=== PATIENT | female | born 1935 | race African-American/Black ===

== ENCOUNTER 2019-02-11 14:42 | Inpatient (IN) ==
[2019-02-11] MEDS ORDERED: ceFAZolin 1,000 MG in SYRINGE 1 EACH IV ONE (15:44)
[2019-02-11] MEDS ORDERED: DEXTROSE 50% 25 GM/50 ML SYRINGE IV ONE (15:55)
[2019-02-11] MEDS ORDERED: DEXTROSE 50% 25 GM/50 ML VIAL IV STA (15:55)
[2019-02-11 15:57] LABS: Basophils % 0.1 % (0.0-0.8); Eosinophils % 0.1 % (0.00-10.9); Hematocrit 30.8 VOL% (35.7-47.0); Hemoglobin 9.2 GM/DL (12.0-16.0); Immature Granulocytes % 0.5 %; Immature Granulocytes Absolute 0.04 #; Lymphocytes # 0.6 10*3/uL (1.4-4.0); Lymphocytes % 7.2 % (21.3-54.2); Mean Corpuscular HGB Conc 29.9 GM/DL (32-36); Mean Corpuscular Volume 91.7 FL (87-102); Mean Platelet Volume 10.5 FL (9.6-12.0); Monocytes % 5.1 % (1.7-12.7); Platelet Count 190 T/CUMM (130-400); Red Blood Count 3.36 MC/CUMM (3.8-5.5); Red Cell Distribution Width 19.9 % (9.3-17.3); White Blood Count 7.6 T/CUMM (4-12)
[2019-02-11 16:07] LABS: INR 1.1; PT Patient Result 12.3 SECS (9.6-12.2); Partial Thromboplastin Time 28.5 SECS (20.8-36.0)
[2019-02-11 16:18] LABS: Albumin 1.6 G/DL (3.4-5.0); Bilirubin,Total 0.5 MG/DL (0.2-1.0); Calcium 10.5 MG/DL (8.5-10.1); Total Protein 7.4 G/DL (6.4-8.3)
[2019-02-11] MEDS ORDERED: ONDANSETRON 4 MG/2 ML VIAL IV PRN (16:23)
[2019-02-11] MEDS ORDERED: GLUCAGON 1 MG VIAL IM PRN (16:23)
[2019-02-11] MEDS: INSULIN LISPRO 100 UNIT/ML SUBCUT SCH ×2 (16:30→21:05)
[2019-02-11] MEDS: DEXTROSE 10% 250 ML BAG IV PRN (21:05)
[2019-02-12] MEDS: DEXTROSE 10% 250 ML BAG IV PRN ×3 (00:54→09:55)
[2019-02-12 05:56] LABS: Basophils % 0.2 % (0.0-0.8); Eosinophils # 0.1 10*3/uL (0.0-0.87); Eosinophils % 0.9 % (0.00-10.9); Hematocrit 24.1 VOL% (35.7-47.0); Hemoglobin 7.4 GM/DL (12.0-16.0); Immature Granulocytes % 0.3 %; Immature Granulocytes Absolute 0.02 #; Lymphocytes # 0.8 10*3/uL (1.4-4.0); Lymphocytes % 14.3 % (21.3-54.2); Mean Corpuscular HGB Conc 30.7 GM/DL (32-36); Mean Corpuscular Volume 90.6 FL (87-102); Mean Platelet Volume 10.6 FL (9.6-12.0); Monocytes % 6.3 % (1.7-12.7); Platelet Count 175 T/CUMM (130-400); Red Blood Count 2.66 MC/CUMM (3.8-5.5); Red Cell Distribution Width 19.9 % (9.3-17.3); White Blood Count 5.7 T/CUMM (4-12)
[2019-02-12 06:43] LABS: Alanine Aminotransferase 17 U/L (13-56); Albumin 1.3 G/DL (3.4-5.0); Alkaline Phosphatase 130 U/L (45-117); Aspartate Amino Transferase 21 U/L (0-37); Bilirubin,Total < 0.39 MG/DL (0.2-1.0); Blood Urea Nitrogen 58 MG/DL (7-18); Calcium 9.5 MG/DL (8.5-10.1); Estimated Glom Filtration Rate 6 ML/MIN; Osmolality,Calculated 282.1 MOS/KG (273-304); Total Protein 5.9 G/DL (6.4-8.3)
[2019-02-12 06:53] LABS: Glucose 47 MG/DL (74-106)
[2019-02-12] MEDS: INSULIN LISPRO 100 UNIT/ML SUBCUT SCH ×4 (07:19→21:18)
[2019-02-12] MEDS ORDERED: ceFAZolin 1,000 MG in SYRINGE 1 EACH IV ONE (08:30)
[2019-02-12] MEDS: PANTOPRAZOLE 40 MG TABLET PO SCH (09:00)
[2019-02-12] MEDS ORDERED: BUPIVACAINE MPF 0.25% 30 ML VIAL ONE (10:07)
[2019-02-12] MEDS ORDERED: LIDOCAINE 1%/EPI INJ 20 ML VIAL ONE (10:07)
[2019-02-12] MEDS ORDERED: HEPARIN 5,000 UNIT/1 ML VIAL ONE (10:07)
[2019-02-12] MEDS ORDERED: SODIUM CHLORIDE 0.9% 250 ML IV SCH (11:00)
[2019-02-12] MEDS ORDERED: LIDOCAINE 2% 5 ML VIAL ONE (11:41)
[2019-02-12] MEDS ORDERED: PROPOFOL 200 MG/20 ML VIAL IV ONE (11:41)
[2019-02-12] MEDS ORDERED: GLUCAGON 1 MG VIAL IM PRN (13:01)
[2019-02-12] MEDS ORDERED: HEPARIN 10,000 UNIT/10 ML VIAL IV SCH (17:30)
[2019-02-12] MEDS ORDERED: DEXTROSE 10% 250 ML IV ONE ×2 (21:12→22:16)
[2019-02-12] MEDS: DEXTROSE 10% 25 GM/250 ML BAG IV PRN ×2 (21:18→22:19)
[2019-02-13] MEDS ORDERED: DEXTROSE 10% 250 ML IV ONE (03:57)
[2019-02-13] MEDS: DEXTROSE 10% 25 GM/250 ML BAG IV PRN ×2 (03:58→08:07)
[2019-02-13 06:05] LABS: Calcium 8.6 MG/DL (8.5-10.1); Osmolality,Calculated 274.1 MOS/KG (273-304)
[2019-02-13] MEDS: INSULIN LISPRO 100 UNIT/ML SUBCUT SCH ×4 (07:14→21:54)
[2019-02-13 07:27] LABS: Basophils % 0.3 % (0.0-0.8); Eosinophils % 0.4 % (0.00-10.9); Hematocrit 23.3 VOL% (35.7-47.0); Hemoglobin 7.2 GM/DL (12.0-16.0); Immature Granulocytes % 0.3 %; Immature Granulocytes Absolute 0.02 #; Lymphocytes # 1.1 10*3/uL (1.4-4.0); Mean Corpuscular HGB Conc 30.9 GM/DL (32-36); Mean Platelet Volume 10.4 FL (9.6-12.0); Monocytes % 6.3 % (1.7-12.7); Neutrophils % 78.7 % (38.7-73.9); Platelet Count 128 T/CUMM (130-400); Red Blood Count 2.59 MC/CUMM (3.8-5.5); Red Cell Distribution Width 19.7 % (9.3-17.3); White Blood Count 7.5 T/CUMM (4-12)
[2019-02-13] MEDS: PANTOPRAZOLE 40 MG TABLET PO SCH (09:21)
[2019-02-13] MEDS ORDERED: SODIUM CHLORIDE 0.9% 1,000 ML IV PRN (09:21)
[2019-02-13] MEDS ORDERED: ACETAMINOPHEN 500 MG TABLET PO PRN (09:24)
[2019-02-13] MEDS ORDERED: POLYETHYLENE GLYCOL POWDER 17 GM PACK PO PRN (09:24)
[2019-02-13] MEDS ORDERED: SKIN HEALING OINT (AQUAPHOR) 50 GM TUBE TOP PRN (15:10)
[2019-02-13] MEDS: CYPROHEPTADINE 4 MG TABLET PO SCH ×2 (15:38→21:58)
[2019-02-13] MEDS: SEVELAMER CARBONATE 800 MG TABLET PO SCH ×2 (15:38→22:17)
[2019-02-13] MEDS ORDERED: DEXTROSE 10% 25 GM/250 ML BAG IV ONE (16:45)
[2019-02-13] MEDS ORDERED: MIRTAZAPINE 15 MG TABLET PO SCH (21:00)
[2019-02-13] MEDS ORDERED: ARIPiprazole 5 MG TABLET PO SCH (21:00)
[2019-02-14] MEDS: DEXTROSE 10% 25 GM/250 ML BAG IV PRN (03:17)
[2019-02-14] MEDS ORDERED: DEXTROSE 10% 250 ML BAG IV PRN (03:30)
[2019-02-14 04:56] LABS: Basophils % 0.3 % (0.0-0.8); Eosinophils % 0.5 % (0.00-10.9); Hematocrit 24.5 VOL% (35.7-47.0); Hemoglobin 7.5 GM/DL (12.0-16.0); Immature Granulocytes % 0.5 %; Immature Granulocytes Absolute 0.04 #; Lymphocytes # 1.4 10*3/uL (1.4-4.0); Lymphocytes % 17.3 % (21.3-54.2); Mean Corpuscular HGB Conc 30.6 GM/DL (32-36); Mean Corpuscular Volume 89.4 FL (87-102); Mean Platelet Volume 9.5 FL (9.6-12.0); Monocytes % 8.5 % (1.7-12.7); Neutrophils % 72.9 % (38.7-73.9); Platelet Count 109 T/CUMM (130-400); Red Blood Count 2.74 MC/CUMM (3.8-5.5); Red Cell Distribution Width 19.3 % (9.3-17.3); White Blood Count 7.8 T/CUMM (4-12)
[2019-02-14 05:22] LABS: Calcium 9.1 MG/DL (8.5-10.1); Osmolality,Calculated 269.4 MOS/KG (273-304)
[2019-02-14] MEDS: INSULIN LISPRO 100 UNIT/ML SUBCUT SCH ×3 (07:21→16:03)
[2019-02-14] MEDS ORDERED: EPOETIN ALFA 2,000 UNIT/1 ML VIAL IV PRN (08:43)
[2019-02-14] MEDS ORDERED: LACTULOSE 20 GM/30 ML UDCUP PO SCH (09:00)
[2019-02-14] MEDS ORDERED: FAMOTIDINE 20 MG TABLET PO SCH (09:00)
[2019-02-14] MEDS ORDERED: LISINOPRIL 2.5 MG TABLET PO SCH (09:00)
[2019-02-14] MEDS: CYPROHEPTADINE 4 MG TABLET PO SCH ×2 (11:15→15:47)
[2019-02-14] MEDS: SEVELAMER CARBONATE 800 MG TABLET PO SCH ×3 (11:16→15:55)
[2019-02-14 14:09] LABS: Hematocrit 30.3 VOL% (35.7-47.0)
[2019-02-14 14:16] LABS: Hemoglobin 9.7 GM/DL (12.0-16.0)
[2019-02-14 16:27] VITALS: BP 106/41
== END 2019-02-14 17:04 | DRG 314 ==
LOC: EDUNIT# → EDBD → N.EDINP 14:42 → N.ED 14:42 → N.3E 16:54
PROVIDERS: ADMIT Internal Medicine; ATTEND Internal Medicine

== ENCOUNTER 2019-03-18 20:49 | Inpatient (IN) ==
[2019-03-18] MEDS ORDERED: DEXTROSE 50% 25 GM/50 ML SYRINGE IV ONE (20:55)
[2019-03-18 21:51] LABS: Alanine Aminotransferase 17 U/L (13-56); Albumin 1.3 G/DL (3.4-5.0); Alkaline Phosphatase 141 U/L (45-117); Aspartate Amino Transferase 48 U/L (0-37); Bilirubin,Total < 0.39 MG/DL (0.2-1.0); Blood Urea Nitrogen 7 MG/DL (7-18); Calcium 7.4 MG/DL (8.5-10.1); Estimated Glom Filtration Rate 30 ML/MIN; Glucose 151 MG/DL (74-106); Total Protein 6.4 G/DL (6.4-8.3)
[2019-03-19] LABS: Basophils % 0.1 % (0.0-0.8); Eosinophils % 0.1 % (0.00-10.9); Hematocrit 35.6 VOL% (35.7-47.0); Hemoglobin 11.2 GM/DL (12.0-16.0); Immature Granulocytes % 0.4 %; Immature Granulocytes Absolute 0.03 #; Lymphocytes # 0.7 10*3/uL (1.4-4.0); Lymphocytes % 8.7 % (21.3-54.2); Mean Corpuscular HGB Conc 31.5 GM/DL (32-36); Mean Corpuscular Volume 86.2 FL (87-102); Monocytes % 3.4 % (1.7-12.7); NRBC # 0.02 10*3/uL; Neutrophils % 87.3 % (38.7-73.9); Platelet Count 61 T/CUMM (130-400); Red Blood Count 4.13 MC/CUMM (3.8-5.5); Red Cell Distribution Width 21.2 % (9.3-17.3); White Blood Count 8.1 T/CUMM (4-12)
[2019-03-19] MEDS ORDERED: PIPERACILLIN/TAZOBACTAM 2,250 MG in SODIUM CHLORIDE 0.9% 100 ML IV STA (00:05)
[2019-03-19 00:07] LABS: INR 1.4
[2019-03-19] MEDS ORDERED: PIPERACILLIN/TAZOBACTAM 3,375 MG in SODIUM CHLORIDE 0.9% 100 ML IV STA (00:07)
[2019-03-19 00:25] LABS: Anisocytosis 1+; Lymphocytes 6 % (20-55); Segmented Neutrophils 91 % (50-85); Total Cells Counted 100
[2019-03-19 00:26] LABS: Acanthocytes Few; Ovalocytes 1+; Platelet Estimate Decreased; Target Cells Few
[2019-03-19] MEDS ORDERED: BISACODYL 5 MG TABLET PO PRN (00:53)
[2019-03-19] MEDS ORDERED: diphenhydrAMINE CAP 25 MG CAPSULE PO PRN (00:53)
[2019-03-19] MEDS ORDERED: MORPHINE 4 MG/1 ML VIAL IV PRN (00:53)
[2019-03-19] MEDS ORDERED: ACETAMINOPHEN 325 MG TABLET PO PRN (00:53)
[2019-03-19] MEDS ORDERED: ONDANSETRON 4 MG/2 ML VIAL IV PRN (00:53)
[2019-03-19] MEDS ORDERED: DEXTROSE 50% 25 GM/50 ML VIAL IV PRN (00:59)
[2019-03-19] MEDS ORDERED: VANCOMYCIN INJ 1,000 MG in SODIUM CHLORIDE 0.9% 250 ML IV PRN (01:07)
[2019-03-19] MEDS ORDERED: VANCOMYCIN INJ 1,750 MG in SODIUM CHLORIDE 0.9% 500 ML IV ONE (03:00)
[2019-03-19] MEDS ORDERED: INFLUENZA VIRUS VACCINE 0.5 ML SYRINGE IM ONE (03:51)
[2019-03-19] MEDS: GLUCAGON 1 MG VIAL IM PRN (04:20)
[2019-03-19] MEDS ORDERED: DEXTROSE 10% 250 ML IV ONE ×2 (05:46→05:49)
[2019-03-19] MEDS: DEXTROSE 10% 500 ML IV SCH ×2 (06:16→06:56)
[2019-03-19 06:56] LABS: Calcium 7.9 MG/DL (8.5-10.1); Osmolality,Calculated 270.7 MOS/KG (273-304)
[2019-03-19] MEDS: PIPERACILLIN/TAZOBACTAM 3,375 MG in SODIUM CHLORIDE 0.9% 100 ML IV SCH ×2 (10:10→18:14)
[2019-03-20] MEDS ORDERED: DEXTROSE 10% 500 ML IV SCH ×2 (01:00)
[2019-03-20] MEDS: DEXTROSE 5% NACL 0.45% 1,000 ML IV SCH ×2 (01:43→17:10)
[2019-03-20] MEDS: PIPERACILLIN/TAZOBACTAM 3,375 MG in SODIUM CHLORIDE 0.9% 100 ML IV SCH ×2 (02:05→22:56)
[2019-03-20 05:38] LABS: Calcium 7.7 MG/DL (8.5-10.1)
[2019-03-20] MEDS ORDERED: LIDOCAINE 1% 20 ML VIAL ONE (06:34)
[2019-03-20] MEDS ORDERED: PROPOFOL 200 MG/20 ML VIAL IV ONE (07:57)
[2019-03-20] MEDS ORDERED: LIDOCAINE 2% 5 ML VIAL ONE (07:57)
[2019-03-20] MEDS ORDERED: PHENYLEPHRINE 1 MG/10 ML SYRINGE IV ONE (07:58)
[2019-03-20] MEDS ORDERED: KETAMINE 500 MG/10 ML VIAL ONE (07:58)
[2019-03-20] MEDS ORDERED: SODIUM CHLORIDE 0.9% 500 ML IV ONE (10:10)
[2019-03-20] MEDS: GLUCAGON 1 MG VIAL IM PRN ×3 (11:15→20:08)
[2019-03-20] MEDS: SEVELAMER CARBONATE 800 MG TABLET PO SCH ×3 (14:33→23:04)
[2019-03-20] MEDS ORDERED: HEPARIN 10,000 UNIT/10 ML VIAL IV PRN (17:09)
[2019-03-20] MEDS ORDERED: DEXTROSE 10% 0 ML IV ONE (19:56)
[2019-03-20] MEDS: ARIPiprazole 5 MG TABLET PO SCH ×2 (22:57→23:05)
[2019-03-20] MEDS: MIRTAZAPINE 15 MG TABLET PO SCH ×2 (22:58→23:05)
[2019-03-21] MEDS: GLUCAGON 1 MG VIAL IM PRN ×3 (00:13→12:44)
[2019-03-21 05:30] LABS: Calcium 7.7 MG/DL (8.5-10.1); Eosinophils % 0.7 % (0.00-10.9); Hematocrit 28.5 VOL% (35.7-47.0); Hemoglobin 9.2 GM/DL (12.0-16.0); Immature Granulocytes % 0.2 %; Immature Granulocytes Absolute 0.01 #; Lymphocytes # 0.8 10*3/uL (1.4-4.0); Lymphocytes % 20.5 % (21.3-54.2); Mean Corpuscular HGB Conc 32.3 GM/DL (32-36); Mean Corpuscular Volume 83.6 FL (87-102); Monocytes % 6.9 % (1.7-12.7); NRBC # 0.02 10*3/uL; Neutrophils % 71.7 % (38.7-73.9); Red Blood Count 3.41 MC/CUMM (3.8-5.5); Red Cell Distribution Width 19.5 % (9.3-17.3)
[2019-03-21 05:41] LABS: Platelet Count 27 T/CUMM (130-400)
[2019-03-21 06:21] LABS: Anisocytosis 1+; Hypochromasia 2+; Microcytosis 1+; Ovalocytes Few; Target Cells Slight
[2019-03-21 06:22] LABS: Platelet Estimate Decreased
[2019-03-21] MEDS: POTASSIUM CHLORIDE 20 MEQ TABLET PO SCH ×3 (06:49→14:36)
[2019-03-21 06:57] LABS: INR 1.3; PT Patient Result 14.3 SECS (9.6-12.2); Partial Thromboplastin Time 38.9 SECS (20.8-36.0)
[2019-03-21 08:01] LABS: Eosinophils % 0.9 % (0.00-10.9); Hematocrit 30.2 VOL% (35.7-47.0); Hemoglobin 9.5 GM/DL (12.0-16.0); Immature Granulocytes % 0.6 %; Immature Granulocytes Absolute 0.02 #; Lymphocytes # 0.8 10*3/uL (1.4-4.0); Lymphocytes % 24.6 % (21.3-54.2); Mean Corpuscular HGB Conc 31.5 GM/DL (32-36); Mean Corpuscular Volume 84.4 FL (87-102); Monocytes % 6.2 % (1.7-12.7); Neutrophils % 67.7 % (38.7-73.9); Red Blood Count 3.58 MC/CUMM (3.8-5.5); Red Cell Distribution Width 19.4 % (9.3-17.3); White Blood Count 3.4 T/CUMM (4-12)
[2019-03-21 08:04] LABS: Platelet Count 32 T/CUMM (130-400)
[2019-03-21] MEDS: SEVELAMER CARBONATE 800 MG TABLET PO SCH ×3 (08:29→21:14)
[2019-03-21] MEDS: DEXTROSE 5% NACL 0.45% 1,000 ML IV SCH ×3 (08:37→21:45)
[2019-03-21] MEDS: PIPERACILLIN/TAZOBACTAM 3,375 MG in SODIUM CHLORIDE 0.9% 100 ML IV SCH ×2 (08:40→21:37)
[2019-03-21 09:15] LABS: Anisocytosis 1+; Burr Cells Slight; Hypochromasia 1+; Microcytosis 1+
[2019-03-21 09:16] LABS: Ovalocytes Slight; Platelet Estimate Decreased; Target Cells Slight
[2019-03-21] MEDS: MIRTAZAPINE 15 MG TABLET PO SCH (21:14)
[2019-03-21] MEDS: ARIPiprazole 5 MG TABLET PO SCH (21:15)
[2019-03-22] MEDS: GLUCAGON 1 MG VIAL IM PRN (00:48)
[2019-03-22 06:29] LABS: Calcium 7.6 MG/DL (8.5-10.1); Osmolality,Calculated 271.7 MOS/KG (273-304)
[2019-03-22 07:41] LABS: Basophils % 0.2 % (0.0-0.8); Eosinophils # 0.1 10*3/uL (0.0-0.87); Eosinophils % 1.1 % (0.00-10.9); Hematocrit 22.3 VOL% (35.7-47.0); Immature Granulocytes % 0.8 %; Immature Granulocytes Absolute 0.04 #; Lymphocytes # 1.4 10*3/uL (1.4-4.0); Lymphocytes % 26.6 % (21.3-54.2); Mean Corpuscular HGB Conc 32.3 GM/DL (32-36); Mean Corpuscular Volume 84.5 FL (87-102); Monocytes % 9.8 % (1.7-12.7); Neutrophils % 61.5 % (38.7-73.9); Red Cell Distribution Width 19.2 % (9.3-17.3)
[2019-03-22 07:51] LABS: Platelet Count 31 T/CUMM (130-400)
[2019-03-22 07:52] LABS: Hemoglobin 7.2 GM/DL (12.0-16.0); Red Blood Count 2.64 MC/CUMM (3.8-5.5); White Blood Count 5.2 T/CUMM (4-12)
[2019-03-22 08:14] LABS: Platelet Estimate Decreased
[2019-03-22] MEDS: PIPERACILLIN/TAZOBACTAM 3,375 MG in SODIUM CHLORIDE 0.9% 100 ML IV SCH ×2 (08:54→22:17)
[2019-03-22] MEDS: SEVELAMER CARBONATE 800 MG TABLET PO SCH ×3 (08:55→22:22)
[2019-03-22] MEDS: DEXTROSE 5% NACL 0.45% 1,000 ML IV SCH ×2 (09:13→22:21)
[2019-03-22 15:39] LABS: Hematocrit 23.9 VOL% (35.7-47.0); Hemoglobin 7.5 GM/DL (12.0-16.0)
[2019-03-22] MEDS: DEXTROSE 10% 250 ML BAG IV PRN (17:15)
[2019-03-22] MEDS: MIRTAZAPINE 15 MG TABLET PO SCH (22:21)
[2019-03-22] MEDS: ARIPiprazole 5 MG TABLET PO SCH (22:21)
[2019-03-23] MEDS: DEXTROSE 10% 250 ML BAG IV PRN (05:33)
[2019-03-23 06:41] LABS: Basophils % 0.3 % (0.0-0.8); Eosinophils # 0.1 10*3/uL (0.0-0.87); Eosinophils % 1.5 % (0.00-10.9); Hematocrit 21.4 VOL% (35.7-47.0); Hemoglobin 6.8 GM/DL (12.0-16.0); Immature Granulocytes % 0.5 %; Immature Granulocytes Absolute 0.02 #; Lymphocytes # 1.1 10*3/uL (1.4-4.0); Lymphocytes % 27.2 % (21.3-54.2); Mean Corpuscular HGB Conc 31.8 GM/DL (32-36); Mean Corpuscular Volume 84.6 FL (87-102); Mean Platelet Volume 12.2 FL (9.6-12.0); Monocytes % 10.8 % (1.7-12.7); NRBC # 0.02 10*3/uL; Neutrophils % 59.7 % (38.7-73.9); Red Blood Count 2.53 MC/CUMM (3.8-5.5); Red Cell Distribution Width 19.2 % (9.3-17.3); White Blood Count 3.9 T/CUMM (4-12)
[2019-03-23 06:46] LABS: Platelet Count 30 T/CUMM (130-400)
[2019-03-23 07:09] LABS: Anisocytosis 1+; Hypochromasia 1+; Microcytosis 1+; Target Cells Slight
[2019-03-23 07:11] LABS: Acanthocytes Few; Ovalocytes Few; Platelet Estimate Decreased
[2019-03-23 07:16] LABS: Calcium 7.6 MG/DL (8.5-10.1); Osmolality,Calculated 272.1 MOS/KG (273-304)
[2019-03-23] MEDS: DEXTROSE 5% NACL 0.45% 1,000 ML IV SCH ×2 (07:18→14:24)
[2019-03-23] MEDS: SEVELAMER CARBONATE 800 MG TABLET PO SCH ×3 (08:08→22:18)
[2019-03-23] MEDS: PIPERACILLIN/TAZOBACTAM 3,375 MG in SODIUM CHLORIDE 0.9% 100 ML IV SCH (08:09)
[2019-03-23] MEDS: SODIUM HYPOCHLORITE 0.25% IRRIG 473 ML BOTTLE TOP SCH (09:00)
[2019-03-23] MEDS ORDERED: SODIUM CHLORIDE 0.9% 1,000 ML IV PRN (09:49)
[2019-03-23] MEDS: cefTRIAXone 1,000 MG in SYRINGE 1 EACH IV SCH ×2 (17:18→23:30)
[2019-03-23] MEDS: GLUCAGON 1 MG VIAL IM PRN ×2 (17:53→22:11)
[2019-03-23 18:44] LABS: Hematocrit 34.7 VOL% (35.7-47.0); Hemoglobin 11.3 GM/DL (12.0-16.0)
[2019-03-23] MEDS ORDERED: GLUCOSE GEL 15 GM TUBE PO ONE (21:41)
[2019-03-23] MEDS ORDERED: GLUCOSE GEL 15 GM TUBE PO PRN (22:13)
[2019-03-23] MEDS: ARIPiprazole 5 MG TABLET PO SCH (22:17)
[2019-03-23] MEDS: MIRTAZAPINE 15 MG TABLET PO SCH (22:18)
[2019-03-24] MEDS: DEXTROSE 5% NACL 0.45% 1,000 ML IV SCH ×2 (06:07→23:38)
[2019-03-24 08:01] LABS: Basophils % 0.2 % (0.0-0.8); Eosinophils # 0.1 10*3/uL (0.0-0.87); Eosinophils % 1.7 % (0.00-10.9); Hematocrit 36.9 VOL% (35.7-47.0); Hemoglobin 12.2 GM/DL (12.0-16.0); Immature Granulocytes % 0.6 %; Immature Granulocytes Absolute 0.03 #; Mean Corpuscular HGB Conc 33.1 GM/DL (32-36); Monocytes % 8.5 % (1.7-12.7); Red Blood Count 4.34 MC/CUMM (3.8-5.5); Red Cell Distribution Width 17.1 % (9.3-17.3); White Blood Count 4.8 T/CUMM (4-12)
[2019-03-24] MEDS: SEVELAMER CARBONATE 800 MG TABLET PO SCH ×3 (08:02→21:21)
[2019-03-24 08:03] LABS: Platelet Count 29 T/CUMM (130-400)
[2019-03-24 08:14] LABS: Calcium 7.7 MG/DL (8.5-10.1); Osmolality,Calculated 262.4 MOS/KG (273-304)
[2019-03-24 08:18] LABS: Anisocytosis 1+; Burr Cells Few; Hypochromasia 1+; Microcytosis 1+
[2019-03-24 08:19] LABS: Platelet Estimate Decreased
[2019-03-24] MEDS: SODIUM HYPOCHLORITE 0.25% IRRIG 473 ML BOTTLE TOP SCH (09:40)
[2019-03-24] MEDS: MIRTAZAPINE 15 MG TABLET PO SCH (21:18)
[2019-03-24] MEDS: ARIPiprazole 5 MG TABLET PO SCH (21:18)
[2019-03-24] MEDS: cefTRIAXone 1,000 MG in SYRINGE 1 EACH IV SCH (23:38)
[2019-03-25 04:59] LABS: Basophils % 0.5 % (0.0-0.8); Eosinophils # 0.1 10*3/uL (0.0-0.87); Eosinophils % 2.2 % (0.00-10.9); Hematocrit 34.5 VOL% (35.7-47.0); Hemoglobin 11.6 GM/DL (12.0-16.0); Immature Granulocytes % 0.2 %; Immature Granulocytes Absolute 0.01 #; Lymphocytes # 0.9 10*3/uL (1.4-4.0); Lymphocytes % 23.1 % (21.3-54.2); Mean Corpuscular HGB Conc 33.6 GM/DL (32-36); Mean Corpuscular Volume 83.5 FL (87-102); Monocytes % 8.7 % (1.7-12.7); Neutrophils % 65.3 % (38.7-73.9); Red Blood Count 4.13 MC/CUMM (3.8-5.5); Red Cell Distribution Width 16.8 % (9.3-17.3)
[2019-03-25 05:21] LABS: Osmolality,Calculated 262.5 MOS/KG (273-304)
[2019-03-25 05:35] LABS: Platelet Count 32 T/CUMM (130-400)
[2019-03-25 05:43] LABS: Platelet Estimate Decreased; Polychromasia Few; Smudge Cells Few
[2019-03-25] MEDS: SEVELAMER CARBONATE 800 MG TABLET PO SCH ×4 (08:46→21:42)
[2019-03-25] MEDS: SODIUM HYPOCHLORITE 0.25% IRRIG 473 ML BOTTLE TOP SCH (12:02)
[2019-03-25] MEDS ORDERED: SODIUM CHLORIDE 0.9% 1,000 ML IV PRN ×2 (18:16→18:31)
[2019-03-25] MEDS: MIRTAZAPINE 15 MG TABLET PO SCH (21:47)
[2019-03-25] MEDS: ARIPiprazole 5 MG TABLET PO SCH (21:47)
[2019-03-25] MEDS: cefTRIAXone 1,000 MG in SYRINGE 1 EACH IV SCH (23:47)
[2019-03-26] MEDS: GLUCAGON 1 MG VIAL IM PRN ×2 (05:01→05:38)
[2019-03-26 07:35] LABS: Basophils % 0.1 % (0.0-0.8); Hemoglobin 9.7 GM/DL (12.0-16.0); Red Blood Count 3.48 MC/CUMM (3.8-5.5)
[2019-03-26 07:40] LABS: INR 1.2; PT Patient Result 13.4 SECS (9.6-12.2)
[2019-03-26 07:51] LABS: Calcium 7.8 MG/DL (8.5-10.1); Osmolality,Calculated 271.7 MOS/KG (273-304)
[2019-03-26 07:52] LABS: Eosinophils # 0.1 10*3/uL (0.0-0.87); Eosinophils % 0.6 % (0.00-10.9); Hematocrit 29.1 VOL% (35.7-47.0); Immature Granulocytes % 0.4 %; Immature Granulocytes Absolute 0.03 #; Lymphocytes # 0.8 10*3/uL (1.4-4.0); Lymphocytes % 10.6 % (21.3-54.2); Mean Corpuscular HGB Conc 33.3 GM/DL (32-36); Mean Corpuscular Volume 83.6 FL (87-102); Mean Platelet Volume 9.9 FL (9.6-12.0); Monocytes % 5.4 % (1.7-12.7); Neutrophils % 82.9 % (38.7-73.9); Red Cell Distribution Width 16.8 % (9.3-17.3)
[2019-03-26 07:56] LABS: Platelet Count 101 T/CUMM (130-400); White Blood Count 7.8 T/CUMM (4-12)
[2019-03-26 08:00] LABS: Hypochromasia 2+; Platelet Estimate Decreased
[2019-03-26] MEDS ORDERED: SODIUM CHLORIDE 0.9% 250 ML IV SCH (08:00)
[2019-03-26] MEDS ORDERED: ceFAZolin 1,000 MG in SYRINGE 1 EACH IV ONE (08:03)
[2019-03-26] MEDS: DEXTROSE 10% 250 ML BAG IV PRN (08:07)
[2019-03-26] MEDS ORDERED: ceFAZolin 1,000 MG VIAL ONE (08:14)
[2019-03-26] MEDS: SEVELAMER CARBONATE 800 MG TABLET PO SCH ×2 (09:10→16:10)
[2019-03-26] MEDS ORDERED: PROPOFOL 200 MG/20 ML VIAL IV ONE (10:00)
[2019-03-26] MEDS ORDERED: LIDOCAINE 2% 5 ML VIAL ONE (10:00)
[2019-03-26] MEDS ORDERED: PHENYLEPHRINE 1 MG/10 ML SYRINGE IV ONE (10:00)
[2019-03-26] MEDS: DEXTROSE 5% NACL 0.45% 1,000 ML IV SCH (10:52)
[2019-03-26] MEDS ORDERED: SEVELAMER CARBONATE 800 MG TABLET PO SCH (11:47)
[2019-03-26] MEDS: SODIUM HYPOCHLORITE 0.25% IRRIG 473 ML BOTTLE TOP SCH (16:11)
[2019-03-26] MEDS: ARIPiprazole 5 MG TABLET PO SCH (21:26)
[2019-03-26] MEDS: MIRTAZAPINE 15 MG TABLET PO SCH (21:26)
[2019-03-27] MEDS: cefTRIAXone 1,000 MG in SYRINGE 1 EACH IV SCH ×2 (00:27→23:02)
[2019-03-27] MEDS: DEXTROSE 5% NACL 0.45% 1,000 ML IV SCH ×2 (03:23→03:24)
[2019-03-27 06:16] LABS: Calcium 7.7 MG/DL (8.5-10.1); Osmolality,Calculated 265.1 MOS/KG (273-304)
[2019-03-27] MEDS: GLUCAGON 1 MG VIAL IM PRN (07:21)
[2019-03-27] MEDS: SEVELAMER CARBONATE 800 MG TABLET PO SCH ×3 (07:25→16:52)
[2019-03-27 07:38] LABS: Basophils % 0.2 % (0.0-0.8); Hematocrit 29.2 VOL% (35.7-47.0); Hemoglobin 9.6 GM/DL (12.0-16.0); Immature Granulocytes % 0.5 %; Immature Granulocytes Absolute 0.02 #; Lymphocytes # 0.9 10*3/uL (1.4-4.0); Lymphocytes % 20.5 % (21.3-54.2); Mean Corpuscular HGB Conc 32.9 GM/DL (32-36); Mean Corpuscular Volume 84.9 FL (87-102); Mean Platelet Volume 10.8 FL (9.6-12.0); Monocytes % 10.4 % (1.7-12.7); Neutrophils % 67.4 % (38.7-73.9); Platelet Count 79 T/CUMM (130-400); Red Blood Count 3.44 MC/CUMM (3.8-5.5); White Blood Count 4.1 T/CUMM (4-12)
[2019-03-27 08:03] LABS: Hypochromasia 1+; Platelet Estimate Decreased
[2019-03-27] MEDS: SODIUM HYPOCHLORITE 0.25% IRRIG 473 ML BOTTLE TOP SCH (09:26)
[2019-03-27] MEDS ORDERED: LIDOCAINE 2% 5 ML VIAL ONE (14:48)
[2019-03-27] MEDS ORDERED: SEVOFLURANE 1 UNIT/15 MINUTE INH ONE (14:48)
[2019-03-27] MEDS ORDERED: ETOMIDATE 40 MG/20 ML VIAL IV ONE (14:48)
[2019-03-27] MEDS ORDERED: PHENYLEPHRINE 1 MG/10 ML SYRINGE IV ONE (14:48)
[2019-03-27] MEDS ORDERED: ONDANSETRON 4 MG/2 ML VIAL ONE (14:48)
[2019-03-27] MEDS ORDERED: GLYCOPYRROLATE 0.4 MG/2 ML VIAL ONE (14:48)
[2019-03-27] MEDS ORDERED: ROCURONIUM 100 MG/10 ML VIAL IV ONE (14:49)
[2019-03-27] MEDS ORDERED: NEOSTIGMINE 10 MG/10 ML VIAL ONE (14:49)
[2019-03-27] MEDS ORDERED: fentaNYL 100 MCG/2 ML VIAL ONE (14:51)
[2019-03-27] MEDS ORDERED: ALBUMIN 5% 12.5 GM/250 ML VIAL IV ONE (16:14)
[2019-03-27] MEDS ORDERED: ALBUMIN 5% 25 GM in PREMIX 1 EACH IV ONE (16:21)
[2019-03-27] MEDS ORDERED: SODIUM CHLORIDE 0.9% 500 ML IV ONE (16:30)
[2019-03-27] MEDS ORDERED: DEXTROSE 10% 250 ML IV ONE (16:34)
[2019-03-27] MEDS: DEXTROSE 10% 250 ML BAG IV PRN (16:35)
[2019-03-27] MEDS: MIRTAZAPINE 15 MG TABLET PO SCH (21:46)
[2019-03-27] MEDS: ARIPiprazole 5 MG TABLET PO SCH (21:46)
[2019-03-28 05:20] LABS: Basophils % 0.4 % (0.0-0.8); Eosinophils # 0.1 10*3/uL (0.0-0.87); Eosinophils % 0.9 % (0.00-10.9); Hematocrit 31.4 VOL% (35.7-47.0); Hemoglobin 9.9 GM/DL (12.0-16.0); Immature Granulocytes % 0.2 %; Immature Granulocytes Absolute 0.01 #; Lymphocytes % 17.3 % (21.3-54.2); Mean Corpuscular HGB Conc 31.5 GM/DL (32-36); Mean Corpuscular Volume 86.5 FL (87-102); Mean Platelet Volume 11.1 FL (9.6-12.0); Monocytes % 6.6 % (1.7-12.7); Neutrophils % 74.6 % (38.7-73.9); Platelet Count 75 T/CUMM (130-400); Red Blood Count 3.63 MC/CUMM (3.8-5.5); Red Cell Distribution Width 17.2 % (9.3-17.3); White Blood Count 5.5 T/CUMM (4-12)
[2019-03-28 05:55] LABS: Calcium 8.3 MG/DL (8.5-10.1)
[2019-03-28] MEDS: DEXTROSE 5% NACL 0.45% 1,000 ML IV SCH ×2 (05:58→14:22)
[2019-03-28] MEDS: SODIUM HYPOCHLORITE 0.25% IRRIG 473 ML BOTTLE TOP SCH (07:30)
[2019-03-28] MEDS: GLUCAGON 1 MG VIAL IM PRN ×2 (08:30→14:35)
[2019-03-28] MEDS: SEVELAMER CARBONATE 800 MG TABLET PO SCH ×3 (09:15→19:15)
[2019-03-28] MEDS: DEXTROSE 10% 250 ML BAG IV PRN (12:22)
[2019-03-28] MEDS: ARIPiprazole 5 MG TABLET PO SCH (20:21)
[2019-03-29] MEDS: cefTRIAXone 1,000 MG in SYRINGE 1 EACH IV SCH ×2 (00:54→23:46)
[2019-03-29] MEDS: DEXTROSE 10% 250 ML BAG IV PRN (03:51)
[2019-03-29] MEDS: SEVELAMER CARBONATE 800 MG TABLET PO SCH ×3 (10:50→18:07)
[2019-03-29] MEDS: DEXTROSE 5% NACL 0.45% 1,000 ML IV SCH (10:52)
[2019-03-29] MEDS: SODIUM HYPOCHLORITE 0.25% IRRIG 473 ML BOTTLE TOP SCH (10:52)
[2019-03-29] MEDS: ARIPiprazole 5 MG TABLET PO SCH (20:50)
[2019-03-30 06:51] LABS: Basophils % 0.2 % (0.0-0.8); Eosinophils # 0.1 10*3/uL (0.0-0.87); Eosinophils % 0.6 % (0.00-10.9); Hematocrit 32.2 VOL% (35.7-47.0); Hemoglobin 10.2 GM/DL (12.0-16.0); Immature Granulocytes % 0.4 %; Immature Granulocytes Absolute 0.03 #; Lymphocytes # 0.9 10*3/uL (1.4-4.0); Lymphocytes % 10.8 % (21.3-54.2); Mean Corpuscular HGB Conc 31.7 GM/DL (32-36); Mean Corpuscular Volume 85.9 FL (87-102); Platelet Count 41 T/CUMM (130-400); Red Blood Count 3.75 MC/CUMM (3.8-5.5); Red Cell Distribution Width 16.9 % (9.3-17.3); White Blood Count 8.1 T/CUMM (4-12)
[2019-03-30 07:21] LABS: Osmolality,Calculated 261.7 MOS/KG (273-304)
[2019-03-30 07:34] LABS: Anisocytosis 2+; Burr Cells Few; Macrocytosis 1+; Platelet Estimate Decreased; Poikilocytosis Slight
[2019-03-30] MEDS ORDERED: MIDODRINE 5 MG TABLET PO SCH (09:00)
[2019-03-30] MEDS: SODIUM HYPOCHLORITE 0.25% IRRIG 473 ML BOTTLE TOP SCH (10:11)
[2019-03-30 11:49] VITALS: BP 117/77
== END 2019-03-30 16:20 | DRG 264 ==
LOC: EDUNIT# → EDBD → N.EDINP 20:49 → N.ED 20:49 → N.3E 03-19 02:58 → SUATTDRO 03-19 15:29
PROVIDERS: ADMIT Internal Medicine Cardiovascular Disease; ATTEND Internal Medicine